=== PATIENT | female | born 1950 | race Caucasian/White ===

== ENCOUNTER 2023-02-07 10:22 | Emergency (ER) | payer BC, OTHER ==
--- NOTE | 2023-02-07 10:29 | ERPHSYRPT ---
- History of Present Illness Time Seen by Provider: 02/07/23 10:28 Source: patient Exam Limitations: no limitations Physician History: This 72-year-old white female patient of Dr. Choe who twisted her right ankle and then fell last night at work. She has pain in her right foot and ankle. Patient is able to weight-bear. There is bruising and swelling present. Method of Injury: fell Occurred: yesterday Quality: aching Severity of Pain-Max: moderate Severity of Pain-Current: moderate Lower Extremities Pain: foot: right, ankle: right Modifying Factors: Improves With: movement Associated Symptoms: other (Can bear weight but hurts to do so.) Allergies/Adverse Reactions: No Known Drug Allergies Allergy (Unverified 02/07/23 12:21) Home Medications: No Reportable Medications [No Reported Medications] 02/07/23 [History] Travel Risk - International Travel Have you traveled outside of the country in past 3 weeks: No - Coronavirus Screening Are you exhibiting any of the following symptoms?: No Close contact with a COVID-19 positive Pt in past 14-21 Days: No - Review of Systems Constitutional: No Symptoms Eyes: No Symptoms Ears, Nose, & Throat: No Symptoms Respiratory: No Symptoms Cardiac: No Symptoms Abdominal/Gastrointestinal: No Symptoms Genitourinary Symptoms: No Symptoms Musculoskeletal: Fall, Injury Skin: No Symptoms (Right foot and ankle) Neurological: No Symptoms Psychological: No Symptoms Endocrine: No Symptoms Hematologic/Lymphatic: No Symptoms Immunological/Allergic: No Symptoms All Other Systems: Reviewed and Negative - Past Medical History Pertinent Past Medical History: Yes - Past Surgical History Past Surgical History: Yes - Nursing Vital Signs Nursing Vital Signs: Initial Vital Signs Temperature 97.3 F 02/07/23 11:36 Pulse Rate 82 02/07/23 11:36 Respiratory Rate 18 02/07/23 11:36 Blood Pressure 157/80 02/07/23 11:36 O2 Sat by Pulse Oximetry 95 02/07/23 11:36 Pain Scale Pain Intensity 6 - Physical Exam General Appearance: no apparent distress, alert, anxiety Eyes, Ears, Nose, Throat Exam: normal ENT inspection, moist mucous membranes Neck Exam: normal inspection, non-tender, supple, full range of motion Cardiovascular/Respiratory Exam: chest non-tender, no respiratory distress Gastrointestinal/Abdominal Exam: non-tender Back Exam: normal inspection, normal range of motion, No CVA tenderness, No vertebral tenderness Hips Exam: bilateral: non-tender, normal inspection, normal range of motion, no evidence of injury Legs Exam: bilateral leg: non-tender, normal inspection, normal range of motion, no evidence of injury Knees Exam: bilateral knee: non-tender, normal inspection, normal range of motion, no evidence of injury Ankle Exam: right ankle: bone tenderness, limited range of motion, soft tissue tenderness, swelling, left ankle: non-tender, normal inspection, normal range of motion, no evidence of injury Foot Exam: right foot: soft tissue tenderness, swelling, left foot: non-tender, normal inspection, normal range of motion, no evidence of injury Neuro/Tendon Exam: normal sensation, normal motor functions, normal tendon functions, responds to pain, no evidence tendon injury Mental Status Exam: alert, oriented x 3, cooperative Skin Exam: normal color, warm, dry SpO2 Interpretation: normal O2 Delivery: Room Air - Course Nursing assessment & vital signs reviewed: Yes Ordered Tests: Active Orders 24 hr Category Date Time Status FOOT (MINIMUM 3 VIEWS) Stat Exams 02/07/23 12:08 Completed - Progress Progress: unchanged, pain not gone completely, re-examined Progress Note: 02/07/23 13:20 This patient's medical issue is 1 of low complexity. Level of complexity in the work-up performed is based on the past medical history, review of the patient's medication list, review the patient's drug allergy list, history of present illness and physical findings on examination. This patient's work-up includes x-ray of the right ankle. The radiologist interpreted the x-ray and I reviewed the impression. There is no evidence of any acute fracture or dislocation. 02/07/23 13:23 Counseled pt/family regarding: diagnosis, need for follow-up, rad results Medical Desision Making - Diagnostic Testing Radiological Interpretation: Reviewed by me, Teleradiologist Report - Risk of complications Low Risk: Low risk of morbidity from additional dx testing or treatment - Departure Departure Disposition: Home Clinical Impression: Right ankle sprain Condition: Stable Critical Care Time: No Referrals: REGINALDO CHOE MD [Primary Care Provider] - Follow up/PCP as directed Additional Instructions: Ice pack or ice bath 3 times a day right ankle for the next 48 hours. Use Tylenol and ibuprofen for pain control. Elevate the right leg above the level of the heart when not ambulating. Wear the Michael wrap for comfort. Follow-up with [facility] orthopedic clinic Saturday through Saturday 8 AM to 10 AM if pain and swelling persist beyond 48 hours despite treatment recommendations.
[2023-02-07 11:38] VITALS: TEMP 97.3
[2023-02-07 12:07] VITALS: BP 139/86
--- NOTE | 2023-02-07 13:06 | XRAY ---
Indication: Pain and bruising following fall. 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 No other bony, articular, or soft tissue abnormalities.
[2023-02-07 14:26] VITALS: PULSE 75; RESP 18; O2SAT 98
== END 2023-02-07 14:26 | disposition home or self-care (01) ==
LOC: ED 10:22
DX: S93.401A Sprain of unspecified ligament of right ankle, initial encounter (principal); X50.0XXA Overexertion from strenuous movement or load, initial encounter; Y92.512 Supermarket, store or market as the place of occurrence of the external cause; Y99.0 Civilian activity done for income or pay
CPT/HCPCS: 73630; 99283